=== PATIENT | male | born 1985 | race Caucasian/White ===

== ENCOUNTER 2023-04-14 16:26 | Emergency (ER) | payer OTHER ==
[~2023-04-14] VITALS: Ht 172.7 cm; Wt 79.4 kg
[2023-04-14 16:42] VITALS: BP 111/68; PULSE 71; RESP 17; TEMP 97.4; O2SAT 98
--- NOTE | 2023-04-14 18:03 | NUR ---
37YO M BIB BOYFRIEND, PRESENTS W/MANIC EPISODE. PT STATES HE WAS SEEN AT [facility] [place] 2DAYS AGO FOR SAME EPISODE, SEROQUIL GIVEN. PT STATES HE DRANK ALCOHOL AND MARIJUANA 6 DAYS AGO. PT ANXIOUS, HYPERACTIVE, HYPERVERBAL, REQUESTING FOR MANY THINGS AT A TIME AND DEMANDING FOR FOOD. NAD NOTED, SAFETY MAINTAINED, CALL LIGHT WITHIN REACH. HX:ANXIETY, DEPRESSION, BIPOLAR
[2023-04-14 18:05] VITALS: O2SAT 98
--- NOTE | 2023-04-14 18:09 | NUR ---
PSYCH EVALUATION OF MANIC EPISODE X 1 WEEK, DENIES SI, DENIES HI. PMH: DEPRESSION, ANXIETY
[2023-04-14 18:25] LABS: APPEARANCE,URINE CLEAR (CLEAR); BILIRUBIN,URINE NEGATIVE (NEGATIVE); BLOOD, URINE NEGATIVE (NEGATIVE); COLOR,URINE YELLOW (YELLOW); LEUKOCYTE ESTERASE ,URINE NEGATIVE (NEGATIVE); NITRITE, URINE NEGATIVE (NEGATIVE); UGLUCOSE NEGATIVE (NEGATIVE)
[2023-04-14 18:36] LABS: BARBITURATE, URINE NEGATIVE ng/ml (NEG <=200); BENZODIAZEPINE, URINE POSITIVE ng/mL (NEG <=200); CANNABINOID, URINE POSITIVE ng/mL (NEG <=50); COCAINE, URINE NEGATIVE ng/mL (NEG <=300); OPIATE, URINE NEGATIVE ng/mL (NEG <=2000); PHENCYCLIDINE SCREEN,URINE NEGATIVE ng/mL (NEG <=25)
--- NOTE | 2023-04-14 18:58 | NUR ---
BLOOD DRAWN AND GIVEN TO MANAGER PORT IN ED.
--- NOTE | 2023-04-14 19:16 | NUR ---
Pt report given to DILLAN ESPINOZA. Transfer of care at this time.
[2023-04-14 19:24] LABS: BASOPHILS % (AUTO) 0.3 % (0.0-2.0); EOSINOPHILS # (AUTO) 0.1 K/uL (0-0.4); EOSINOPHILS % (AUTO) 1.5 % (0.0-4.0); HEMATOCRIT 38.6 % (36-52); HEMOGLOBIN 13.2 g/dL (12.0-18.0); LYMPHOCYTES # (AUTO) 1.8 K/uL (2.0-11.5); LYMPHOCYTES % (AUTO) 18.7 % (20.5-51.1); MEAN CORPUSCULAR HEMOGLOBIN 30 pg (27-31); MEAN CORPUSCULAR HGB CONC 34 g/dL (33-37); MEAN CORPUSCULAR VOLUME 87.8 fL (80-94); MONOCYTES # (AUTO) 0.6 K/uL (0.8-1.0); MONOCYTES % (AUTO) 6.5 % (1.7-9.3); NEUTROPHILS # (AUTO) 7.2 K/uL (1.8-7.7); PLATELET COUNT (AUTO) 254 K/uL (140-450); RED CELL DISTRIBUTION WIDTH 13.1 % (11.6-13.7); WHITE BLOOD COUNT (AUTO) 9.8 K/uL (4.8-10.8)
[2023-04-14 19:41] LABS: ALBUMIN 4.2 g/dL (3.4-5.0); ASPARTATE AMINOTRANSFERASE 44 U/L (15-37); CARBON DIOXIDE 30.6 mmol/L (21-32); CHLORIDE 102 mmol/L (98-107); CREATININE 1.1 mg/dL (0.6-1.3); GFR ARICAN-AMERICAN 97 mL/min (>90); GLUCOSE 91 mg/dL (74-106); POTASSIUM 3.6 mmol/L (3.5-5.1); SALICYLATE < 2.8 mg/dL (2.8-20.0); SODIUM SERUM 140 mmol/L (136-145); TOTAL BILIRUBIN 0.4 mg/dL (0.0-1.0); UREA NITROGEN, BLOOD 10 mg/dL (7-18)
[2023-04-14 19:42] LABS: ACETAMINOPHEN < 0.5 ug/ml (10-30)
[2023-04-14] MEDS ORDERED: LORazepam 1 MG TAB PO ONE (19:55)
--- NOTE | 2023-04-14 20:06 | NUR ---
Pt Hand over from AM shift. On bed, Conscious agitated. Keeps on walking in and out of room. Kept safe and monitored.
--- NOTE | 2023-04-14 20:18 | NUR ---
Pt keeps on wondering around. ID Name [email or web address] removed. Ask for ativan shot.
[2023-04-14] MEDS ORDERED: OLANZapine 10 MG VIAL IM ONE (20:20)
[2023-04-14] MEDS ORDERED: WATER STERILE 10 ML MC ONE (20:25)
--- NOTE | 2023-04-14 21:52 | NUR ---
PSYCHIATRIST ON ZOOM WITH PT AT THIS TIME FOR EVALUATION.
--- NOTE | 2023-04-14 22:12 | NUR ---
Patient discharged with v/s stable. Written and verbal after care instructions given and explained. Patient verbalized understanding. Ambulatory with steady gait. All questions addressed prior to discharge. Advised to follow up with PMD.
== END 2023-04-14 22:12 | disposition home or self-care (01) ==
LOC: MED 16:26
DX: F31.9 Bipolar disorder, unspecified (principal); R45.1 Restlessness and agitation; Z79.899 Other long term (current) drug therapy
CPT/HCPCS: 36415; 80053; 80178; 80305; 81003; 85025; 96372; 99283; G0480; G0482; J3490